=== PATIENT | male | born 1940 | race Caucasian/White ===

== ENCOUNTER 2018-01-09 09:29 | Inpatient (IN) | payer OTHER ==
[~2018-01-09] VITALS: Ht 177.8 cm; Wt 85.1 kg
--- NOTE | ~2018-01-09 | EKG ---
[place] [address] [facility] [place] [address] ELECTROCARDIOGRAM REPORT Name: VERONA GAUTAM Room #: 431-P ADM IN M.R.#: [id number] Admission: 01/09/18 Attend Phys: Jaquan Ziegler MD Discharge: Date of : 40 Report #: [id number] THIS REPORT FOR: //name// [facility] ED Test Date: 2018-01-09 Test Time: 10:07:42 Pat Name: VERONA GAUTAM Department: Room: [facility] Gender: M Side Guider: JACQUES : 1940 Requested By: Jesse Vinson Order Number: [id number] MD: Jhonny Marcus Measurements Intervals [place] Rate: 74 P: 32 [place]: 174 QRS: 64 QRSD: 121 T: 17 QT: 426 QTc: 473 Interpretive Statements Sinus rhythm Normal tracing No previous ECG available for comparison Electronically Signed On 01-10-2018 8:17:53 CDT by Jhonny Marcus [email or web address] <ELECTRONICALLY SIGNED> By: Jhonny Marcus MD, [facility] 01/10/18 0817 1007 1007 Jhonny Marcus MD, FACC /EPI
[2018-01-09 09:34] VITALS: BP 165/109
[2018-01-09] MEDS ORDERED: PROZAC20 MG PO (10:02)
[2018-01-09] MEDS ORDERED: OMEPRAZOLE40 MG PO (10:02)
[2018-01-09] MEDS ORDERED: LIBRAX PO (10:03)
[2018-01-09] MEDS ORDERED: FLOMAX0.4 MG PO (10:03)
[2018-01-09 10:04] LABS: ABSOLUTE NEUTROPHILS 12.6 thou/uL (1.4-8.2); BASOPHILS 0.1 % (0.0-2.0); EOSINOPHILS 0.1 % (0.0-3.0); HEMATOCRIT 41.6 % (42.0-52.0); HEMOGLOBIN 14.2 gm/dL (14.0-18.0); LYMPHOCYTES 4.6 % (24.0-44.0); MCH 31.4 pg (26.0-34.0); MCHC 34.3 g/dL (28.0-37.0); MCV 91.6 fL (80.0-100.0); MONOCYTES 7.2 % (1.0-8.0); PLATELET COUNT 197 thou/uL (150-400); RBC 4.54 mil/uL (4.50-6.00); RDW 13.4 % (10.5-14.5); WBC 14.4 thou/uL (4.0-11.0)
[2018-01-09 10:14] LABS: ANION GAP 7 mmol/L (7-16); BUN 17 mg/dL (7-18); CALCIUM 9.1 mg/dL (8.5-10.1); CHLORIDE 93 mmol/L (98-107); CO2 27 mmol/L (21-32); CREATININE 0.8 mg/dL (0.7-1.3); GLUCOSE 144 mg/dL (74-106); POTASSIUM 4.2 mmol/L (3.5-5.1); SODIUM 127 mmol/L (136-145)
[2018-01-09 10:22] LABS: ALBUMIN 3.8 g/dL (3.4-5.0); LIPASE 116 U/L (73-393); SGOT 19 U/L (15-37); SGPT 25 U/L (30-65); TOTAL BILIRUBIN 0.4 mg/dL (<0.1-1.0); TOTAL PROTEIN 7.4 g/dL (6.4-8.2); TROPONIN-I <0.06 ng/mL (<0.06)
[2018-01-09 11:02] LABS: URINE BILIRUBIN NEGATIVE (Negative); URINE BLOOD NEGATIVE (Negative); URINE CLARITY CLEAR; URINE COLOR YELLOW; URINE GLUCOSE-RANDOM* NEGATIVE (Negative); URINE KETONES TRACE (Negative); URINE LEUKOCYTES-REFLEX NEGATIVE (Negative); URINE NITRITE-REFLEX NEGATIVE (Negative); URINE PROTEIN (DIPSTICK) NEGATIVE (Negative); URINE UROBILINOGEN 0.2 E.U./dl (0.2-1.0)
[2018-01-09 14:27] VITALS: BP 165/109
[2018-01-09 15:23] VITALS: BP 146/73
[2018-01-09 15:30] VITALS: BP 138/72
[2018-01-09] MEDS ORDERED: VITAMINC500 PO (16:16)
[2018-01-09] MEDS ORDERED: FISH OIL 1,001000 M2 PO (16:16)
[2018-01-09] MEDS ORDERED: ZINC10 MG PO (16:17)
[2018-01-09] MEDS ORDERED: VITAMIN E400 UNIT PO (16:18)
[2018-01-09] MEDS ORDERED: MUCINEX1200 MG PO (16:19)
[2018-01-09] MEDS ORDERED: COQ-10100 MG PO (16:19)
[2018-01-09 20:00] VITALS: BP 128/78
[2018-01-10 04:33] VITALS: BP 131/64
[2018-01-10 09:06] LABS: HEMATOCRIT 37.7 % (42.0-52.0); HEMOGLOBIN 13.1 gm/dL (14.0-18.0); MCH 32.1 pg (26.0-34.0); MCHC 34.7 g/dL (28.0-37.0); MCV 92.5 fL (80.0-100.0); RBC 4.08 mil/uL (4.50-6.00); RDW 13.5 % (10.5-14.5); WBC 7.4 thou/uL (4.0-11.0)
[2018-01-10 09:25] VITALS: BP 135/83
[2018-01-10 09:27] LABS: CALCIUM 8.3 mg/dL (8.5-10.1); CREATININE 0.9 mg/dL (0.7-1.3); TOTAL BILIRUBIN 0.8 mg/dL (<0.1-1.0); TOTAL PROTEIN 6.5 g/dL (6.4-8.2)
[2018-01-11 06:13] VITALS: BP 150/88
[2018-01-11 07:25] VITALS: BP 137/83
[2018-01-11] MEDS ORDERED: CEFDINIR300 MG PO (08:09)
[2018-01-11 15:26] VITALS: BP 137/83
== END 2018-01-11 17:30 | disposition home or self-care (01) | DRG 177 ==
LOC: ER 09:29 → EROBS 13:58 → 4E 13:58 → SICU 01-10 09:00 → ENTRNSPT 01-11 17:08 → SICU 01-11 17:30
PROVIDERS: Family Medicine; Physician Assistant
PROC: 0DJ08ZZ Inspection of Upper Intestinal Tract, Via Natural or Artificial Opening Endoscopic (ICD-10-PCS; principal; 2018-01-11)
DX: J15.6 Pneumonia due to other Gram-negative bacteria (principal); E43 Unspecified severe protein-calorie malnutrition; E87.1 Hypo-osmolality and hyponatremia; N40.1 Benign prostatic hyperplasia with lower urinary tract symptoms; K81.9 Cholecystitis, unspecified; F41.9 Anxiety disorder, unspecified; K21.9 Gastro-esophageal reflux disease without esophagitis; F10.920 Alcohol use, unspecified with intoxication, uncomplicated; R33.8 Other retention of urine; K59.00 Constipation, unspecified; J98.01 Acute bronchospasm; Z68.26 Body mass index [BMI] 26.0-26.9, adult; Z87.891 Personal history of nicotine dependence; Z87.11 Personal history of peptic ulcer disease; Z79.899 Other long term (current) drug therapy; Z82.3 Family history of stroke; Z82.5 Family history of asthma and other chronic lower respiratory diseases
CPT/HCPCS: 10084; 15002; 62110; 62900; 70005

== ENCOUNTER → 2018-02-06 | Outpatient (CLI) | payer OTHER ==
[~2018-02-06] MED LIST: CEFDINIR300 MG PO; COQ-10100 MG PO; FISH OIL 1,001000 M2 PO; FLOMAX0.4 MG PO; LIBRAX PO; MUCINEX1200 MG PO; OMEPRAZOLE40 MG PO; PROZAC20 MG PO; VITAMIN E400 UNIT PO; VITAMINC500 PO; ZINC10 MG PO
== END ==
LOC: SPEECH 10:46 → RAD 10:46
DX: J98.11 Atelectasis (principal); K21.9 Gastro-esophageal reflux disease without esophagitis; J30.1 Allergic rhinitis due to pollen; K44.9 Diaphragmatic hernia without obstruction or gangrene; R10.13 Epigastric pain

== ENCOUNTER → 2018-03-24 | Outpatient (CLI) | payer OTHER ==
--- NOTE | ~2018-03-24 | SLE ---
[facility] [place] [address] POLYSOMNOGRAPHY STUDY Name: VERONA GAUTAM Room #: REG [facility].#: [id number] Admission: 03/24/18 Attend Phys: Navid Hamilton MD Discharge: Date of : 40 Report #: [id number] THIS REPORT FOR: //name// CC: Navid Hannah MD DATE OF SERVICE: 03/25/2018 ATTENDING PHYSICIAN: Dr. Angel Hannah. The patient is a 78-year-old who weighs 187 pounds and is 70 inches tall with a BMI of 26.8. The patient's Rodney score was 10. The patient underwent a diagnostic sleep study at [facility]. During the night study, the patient spent 393 minutes in bed and slept for 296 minutes with a sleep efficiency of 76%. Sleep latency was 36.2 minutes with a REM latency of 322.7 minutes. Overall sleep architecture showed increased stage 1 and stage 2 sleep, absent slow wave and significantly reduced REM sleep, which was only 0.8% of total sleep time. During the night of the study, the patient had 20 apneas, 18 obstructive, l central and 1 mixed, and 88 hypopneas. The patient's apnea-hypopnea index was 21.7 per hour with a REM index of 24 per hour and a supine index of 21.7 per hour as well. EKG monitoring revealed an average heart rate of 70 beats per minute, normal sinus rhythm. Occasional PACs and rare PVCs seen. PLMS were seen at an index of 87.8 per hour and 4.6 per hour caused EEG arousals. Nocturnal oximetry study revealed an average oxygen saturtion of 90% with a lowest of 68%. 81 minutes were spent with oxygen saturation of less than 89%. The patient did meet the criteria for CPAP initiation, but it was late in the night of the study, and as a result there was no sufficient time to initiate CPAP. IMPRESSION: 1. Moderate sleep apnea-hypopnea syndrome at an apnea-hypopnea index of 21.7 per hour. 2. Nocturnal hypoxia secondary to obstructive sleep apnea. 3. 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 [facility] [address] [place] [address] POLYSOMNOGRAPHY STUDY Name: VERONA GAUTAM Room #: REG [facility].#: [id number] Admission: 03/24/18 Attend Phys: Navid Hamilton MD Discharge: Date of : 40 Report #: [id number] RECOMMENDATIONS: 1. The patient would benefit from return to the sleep lab for CPAP titration study. 2. Once optimum CPAP pressure is achieved, then follow up in 4-6 weeks to assess compliance with CPAP and to document clinical improvement. 3. Weight loss is advised. 4. Avoid HAND INSERTER OPERATOR depressants. 5. Cautioned regarding driving until symptoms of sleep apnea have resolved with the use of CPAP. 6. The patient should also be further evaluated for symptoms of restless legs during the day and if present it can be treated with dopaminergic agonist agents. <ELECTRONICALLY SIGNED> By: Navid Hamilton MD 03/26/18 1720 1535 1552 Navid Hamilton MD /nt
== END ==
LOC: SLEEPLAB 16:06
DX: G47.33 Obstructive sleep apnea (adult) (pediatric) (principal); G47.61 Periodic limb movement disorder; G47.34 Idiopathic sleep related nonobstructive alveolar hypoventilation; R06.83 Snoring

== ENCOUNTER → 2018-04-18 | Outpatient (CLI) | payer OTHER ==
--- NOTE | ~2018-04-18 | SLE ---
[facility] [place] [address] POLYSOMNOGRAPHY STUDY Name: VERONA GAUTAM Room #: REG [facility].#: [id number] Admission: 04/18/18 Attend Phys: Navid Hamilton MD Discharge: Date of : 40 Report #: [id number] THIS REPORT FOR: //name// CC: Navid Hannah DATE OF SERVICE: 04/18/2018 ATTENDING PHYSICIAN: Dr. Angel Hannah. The patient is 78 years old who weighs 187 pounds and is 70 inches tall with a BMI of 26.8. The patient had a previous sleep study in March of this year and was found to have moderate obstructive sleep apnea at an AHI of 21.7 per hour. The patient returned to [facility] for CPAP titration study. During the night of study, the patient spent 502 minutes in bed and slept for 354 minutes with a sleep efficiency of 70.6%. Sleep latency was prolonged at 74 minutes with a REM latency of 245 minutes. Overall, sleep architecture showed increased stage I sleep, normal stage 2 sleep, absent slow wave and reduced REM sleep, which was 8% of the total sleep time. During the night of study, the patient's average heart rate was 74 beats per minute, occasional PVCs seen. Maximum heart rate was 92 beats per minute. No sustained arrhythmias were observed. PLMS were seen at an index of 52 per hour, but only 2.5 per hour caused EEG arousals. The patient was started on CPAP at a pressure of 5 cm water and titrated up to 16 cm water. The patient did have some difficult titration. He was having a large oral leaks as the pressure was increased. The avionics repair technician switched him to a large full face mask and later he was switched to a nasal mask with a chin strap. Review of the titration data reveals that the best pressure was 15 cm of water. At that pressure, the patient had 48 minutes of sleep. The patient's AHI was reduced to 3.7 per hour. The patient did have supine sleep, but no REM sleep was observed. Oxygen saturation remained above 92%. Prior to that, at a pressure of 14 cm of water, the patient did have supine and REM sleep and AHI was 5 per hour. The pressure of 15 was increased to eliminate snoring. IMPRESSION: 1. Sleep apnea diagnosed by previous sleep study. 2. Severe PLMS without any significant EEG arousals. This does not need to be treated unless the patient has symptoms of restless legs during the day. 3. Reduced sleep efficiency resulting from sleep onset and sleep maintenance [facility] [address] [place] [address] POLYSOMNOGRAPHY STUDY Name: VERONA GAUTAM Room #: REG [facility] Kylah#: [id number] Admission: 04/18/18 Attend Phys: Navid Hamilton MD Discharge: Date of : 40 Report #: [id number] insomnia. RECOMMENDATIONS: 1. CPAP at 15 cm water should be used on a nightly basis. 2. Follow up in 4-6 weeks to assess compliance with CPAP and to document clinical improvement. 3. Avoid FOUNDRY ENGINEER depressants. 4. Caution regarding driving until symptoms of sleep apnea have resolved with the use of CPAP. <ELECTRONICALLY SIGNED> By: Navid Hamilton MD 04/20/18 0642 1839 191 Navid Hamilton MD /nt
== END ==
LOC: SLEEPLAB 09:31
DX: G47.33 Obstructive sleep apnea (adult) (pediatric) (principal); G47.61 Periodic limb movement disorder

== ENCOUNTER 2019-05-14 19:51 | Emergency (ER) | payer OTHER ==
[~2019-05-14] VITALS: Ht 177.8 cm; Wt 85.7 kg
[2019-05-14] MEDS ORDERED: TESSALON PERLE100 M1 PO (19:59)
[2019-05-14 20:38] VITALS: BP 111/63
--- NOTE | 2019-05-15 08:40 | EKG ---
[address] [address] ELECTROCARDIOGRAM REPORT Name: VERONA GAUTAM [id number] Admission: 05/14/19 Attend Phys: Discharge: 05/14/19 Date of : 40 Report #: [id number] THIS REPORT FOR: //name// [facility] ED Test Date: 2019-05-14 Test Time: 20:18:33 Pat Name: VERONA GAUTAM Department: Room: Gender: M Patcher [place]: : 1940 Requested By: Jesse Vinson Order Number: [id number] MD: Hill Rodriguez Measurements Intervals [place] Rate: 82 P: 46 [place]: 179 QRS: 61 QRSD: 117 T: 32 QT: 396 QTc: 463 Interpretive Statements Sinus rhythm Probable left atrial enlargement Nonspecific intraventricular conduction delay Compared to ECG 01/09/2018 10:07:42 Intraventricular conduction delay now present Electronically Signed On 05-15-2019 8:40:11 AIRPLANE PILOT PHOTOGRAMMETRY by Hill Rodriguez [email or web address] <ELECTRONICALLY SIGNED> By: Hill Rodriguez MD 05/15/19 0840 17 17 Hill Rodriguez MD /JAMIL
== END 2019-05-14 20:31 | disposition left against medical advice (07) ==
LOC: ER 19:51
DX: R55 Syncope and collapse (principal); S09.90XA Unspecified injury of head, initial encounter; Z87.891 Personal history of nicotine dependence; Z79.899 Other long term (current) drug therapy; W07.XXXA Fall from chair, initial encounter; Y93.89 Activity, other specified; Y92.511 Restaurant or cafe as the place of occurrence of the external cause; Y99.9 Unspecified external cause status

== ENCOUNTER 2019-06-06 05:16 | Inpatient (IN) | payer OTHER ==
[~2019-06-06] VITALS: Ht 177.8 cm; Wt 87.1 kg
[~2019-06-06 05:16] MED LIST changes: +TESSALON PERLE100 M1 PO
[2019-06-06 05:19] VITALS: BP 148/84
[2019-06-06 06:02] LABS: ABSOLUTE NEUTROPHILS 6.2 thou/uL (1.4-8.2); BASOPHILS 0.2 % (0.0-2.0); EOSINOPHILS 0.5 % (0.0-3.0); HEMATOCRIT 39.1 % (42.0-52.0); HEMOGLOBIN 13.1 gm/dL (14.0-18.0); LYMPHOCYTES 7.8 % (24.0-44.0); MCHC 33.5 g/dL (28.0-37.0); MCV 95.7 fL (80.0-100.0); PLATELET COUNT 179 thou/uL (150-400); POLYS 84.5 % (36.0-66.0); RBC 4.09 mil/uL (4.50-6.00); RDW 13.3 % (10.5-14.5); WBC 7.4 thou/uL (4.0-11.0)
[2019-06-06 06:03] LABS: CALCIUM 9.1 mg/dL (8.5-10.1); CREATININE 0.8 mg/dL (0.7-1.3); POTASSIUM 3.8 mmol/L (3.5-5.1)
[2019-06-06 06:10] LABS: ALBUMIN 3.4 g/dL (3.4-5.0); TOTAL BILIRUBIN 2.7 mg/dL (<0.1-1.0); TOTAL PROTEIN 7.2 g/dL (6.4-8.2)
[2019-06-06 07:24] LABS: URINE BILIRUBIN NEGATIVE (Negative); URINE BLOOD NEGATIVE (Negative); URINE CLARITY CLEAR; URINE COLOR YELLOW; URINE GLUCOSE-RANDOM* NEGATIVE (Negative); URINE KETONES NEGATIVE (Negative); URINE LEUKOCYTES-REFLEX NEGATIVE (Negative); URINE NITRITE-REFLEX NEGATIVE (Negative); URINE PROTEIN (DIPSTICK) NEGATIVE (Negative); URINE SPECIFIC GRAVITY <= 1.005 (1.005-1.035)
[2019-06-06 07:44] VITALS: BP 139/78
[2019-06-06 08:39] VITALS: BP 139/78
[2019-06-06 08:56] VITALS: BP 147/76
[2019-06-06 15:42] VITALS: BP 124/75
--- NOTE | 2019-06-06 18:16 | NUR ---
Patient admitted to this unit at 0900 for Abdominal Pain. Vital signs have been stable but O2 sats have ranged from 89-91% on room air. Patient placed on 02 at [address] Chaves notified of this when he called to order another CMP. Patient has continually asked for pain medication even after he has been told that "it is too early." Dr Ziegler gave telephone order for Morphine 4mg IV Push q 2 hours for pain. Patient has been educated about the risks of too many pain medications. He verbalized an understanding of this education. Patient has had jello, applesauce, water and broth today. He has had nausea and no vomiting. Nausea has been controlled with IV Zofran. Will report to oncoming nurse.
[2019-06-06 21:00] VITALS: BP 141/74
[2019-06-07 00:25] VITALS: BP 116/69
--- NOTE | 2019-06-07 03:05 | NUR ---
Patient making slow progress towards outcome goals. Low grade temp. Improved with antibiotics. Abdominal pain much improved after keeping patient NPO. Fentanyl controlled pain better. Good urine output. Low fall risks, calls out appropriately for needs. Gait steady.
[2019-06-07 05:22] LABS: HEMOGLOBIN 12.2 gm/dL (14.0-18.0); MCHC 33.8 g/dL (28.0-37.0); MCV 97.6 fL (80.0-100.0); RBC 3.69 mil/uL (4.50-6.00); RDW 13.5 % (10.5-14.5); WBC 7.9 thou/uL (4.0-11.0)
[2019-06-07 05:41] LABS: ALBUMIN 2.6 g/dL (3.4-5.0); CREATININE 0.8 mg/dL (0.7-1.3); POTASSIUM 4.2 mmol/L (3.5-5.1); TOTAL BILIRUBIN 4.9 mg/dL (<0.1-1.0); TOTAL PROTEIN 6.2 g/dL (6.4-8.2)
[2019-06-07 05:53] VITALS: BP 118/69
[2019-06-07 07:17] VITALS: BP 116/69
--- NOTE | 2019-06-07 07:47 | NUR ---
chart review, pt out of room for test/procedure.
[2019-06-07 12:09] LABS: HAV IgM AB (ANTI-HAV IgM) Negative (Negative); HEPATITIS B SURFACE AG Negative (Negative); HEPATITIS C VIRUS AB <0.1 (0.0-0.9)
[2019-06-07 15:00] VITALS: BP 130/71
--- NOTE | 2019-06-07 18:27 | NUR ---
ASSUMED CARE OF PT AT 0700. PT AOX4 IN NO ACUTE DISTRESS. REPORTS PAIN MUCH IMPROVED. MRCP NEGATIVE. NOW ON FULL LIQUIDS. NPO AFTER MN FOR PIPIDA SCAN AND POSSIBLE LAP PELON. VITALS STABLE. MAINTENANCE FLUIDS AND IV ABX INFUSING PER ORDER. CALLS APPROPRIATELY. PT PROGRESSING TOWARD POC GOALS.
[2019-06-07 19:11] VITALS: BP 136/83
--- NOTE | 2019-06-07 20:00 | NUR ---
PT TRANSFERED TO [facility] AT 1944. REPORT CALLED
--- NOTE | 2019-06-08 05:05 | NUR ---
Pt. rested quietly at intervals during the night when checked on during frequent rounds. He offers no c/o pain or discomfort.
[2019-06-08 05:19] LABS: HEMATOCRIT 35.7 % (42.0-52.0); HEMOGLOBIN 11.6 gm/dL (14.0-18.0); MCH 31.4 pg (26.0-34.0); MCHC 32.3 g/dL (28.0-37.0); MCV 97.3 fL (80.0-100.0); RBC 3.67 mil/uL (4.50-6.00); RDW 13.6 % (10.5-14.5); WBC 5.8 thou/uL (4.0-11.0)
[2019-06-08 05:44] LABS: ALBUMIN 2.6 g/dL (3.4-5.0); CALCIUM 8.5 mg/dL (8.5-10.1); CREATININE 0.6 mg/dL (0.7-1.3); POTASSIUM 3.7 mmol/L (3.5-5.1); TOTAL PROTEIN 6.2 g/dL (6.4-8.2)
[2019-06-08 07:54] VITALS: BP 150/83
--- NOTE | 2019-06-08 12:00 | NUR ---
PT A&OX4, VSS, DENIES PAIN. PATIENT ABDOMEN ROUND AND SOFT, BM TODAY. BOWEL SOUNDS ACTIVE X4. HEPATOBILIARY PIPIDA COMPLETED. NO SIGNS OF DISTRESS. PATIENT REMAINS NPO. WILL CONTINUE TO MONITOR.
--- NOTE | 2019-06-08 15:56 | NUR ---
PT HAS BEEN OUT OF ROOM DURING MULTIPAL ATTEMPTS TO ASSESS THIS DAY. PT OUT OF ROOM AT TIME OF VISIT. CM TO FOLLOW INIDCATED WITH DC PLANNING.
--- NOTE | 2019-06-08 16:07 | NUR ---
PT IS IN SURGERY HAVING LAP PELON. CM CALLED PT'S SPOUSE AND SHE INDICATED THAT THEY LIVE TOGETHER IN A HOUSE AND THAT SHE IS INDEPENDENT AND ABLE TO ASSIST IF NEEDED. SPOUSE INTICATED THAT PT IS INDEPENDENT OF ADLS AND AMBULATION. PT AND SPOUSE BOTH DRIVE. VOICES NO CONCERNS RELATED TO DC AND DENY ANY NEEDS AT THIS TIME. FOLLOWING TO ASSIST WITH DC PLANNING.
[2019-06-08 19:57] VITALS: BP 150/84
[2019-06-08 20:53] VITALS: BP 149/85
[2019-06-08 21:45] VITALS: BP 141/81
[2019-06-08 22:53] VITALS: BP 132/79
[2019-06-09] VITALS: BP 136/76
--- NOTE | 2019-06-09 03:58 | NUR ---
ASSUMED CARE OF PT FROM PACU AT 1930HRS. PT IS AOX4 AND LETS NEEDS BE KNOWN. PT UP AD LALIT WITH A STEADY GAIT. O2 AT 2L CONTINUED. LAP SITES X4 ARE C/D/I. PAOLA DRAIN IN PLACE AND PATIENT. PT REPORTED SOME PAIN AND WAS GIVEN PRN PAIN MEDS. PT DENIES NAUSEA. PT WAS ABLE TO TOLERATE PO MEDS WITH SIPS OF WATER. ABX TREATMENT CONTINUED. PT WAS ABLE TO GET COMFORTABLE AND SLEEP PAERT OF THE SHIFT. VSS AND NO S/S OF ACUTE DISTRESS. WILL CONTINUE TO MONITOR.
[2019-06-09 04:11] VITALS: BP 136/74
[2019-06-09 05:42] LABS: HEMATOCRIT 34.1 % (42.0-52.0); HEMOGLOBIN 11.3 gm/dL (14.0-18.0); MCH 32.5 pg (26.0-34.0); MCHC 33.2 g/dL (28.0-37.0); MCV 97.8 fL (80.0-100.0); RBC 3.49 mil/uL (4.50-6.00); RDW 13.1 % (10.5-14.5); WBC 6.7 thou/uL (4.0-11.0)
[2019-06-09 06:08] LABS: ALBUMIN 2.5 g/dL (3.4-5.0); CALCIUM 8.2 mg/dL (8.5-10.1); CREATININE 0.6 mg/dL (0.7-1.3); TOTAL BILIRUBIN 0.6 mg/dL (<0.1-1.0)
[2019-06-09 08:00] VITALS: BP 140/72
--- NOTE | 2019-06-09 10:44 | NUR ---
PT A&OX4, VSS, PAIN IN ABDOMEN. 4 LAP SITES, C/D/I, WITH DERMABOND. PATIENT HAS URINATED, BOWEL SOUDS ACTIVE. PATIENT AMBULATES TO BATHROOM. FLUIDS AND ANTIBIOTICS RAN PER ORDER, IV PATENT.
[2019-06-09 15:00] VITALS: BP 133/70
[2019-06-09 19:50] VITALS: BP 134/78
[2019-06-10 03:32] LABS: HEMATOCRIT 33.5 % (42.0-52.0); HEMOGLOBIN 11.2 gm/dL (14.0-18.0); MCH 32.5 pg (26.0-34.0); MCHC 33.5 g/dL (28.0-37.0); MCV 96.9 fL (80.0-100.0); RBC 3.46 mil/uL (4.50-6.00); RDW 12.9 % (10.5-14.5); WBC 4.9 thou/uL (4.0-11.0)
[2019-06-10 04:06] LABS: ALBUMIN 2.5 g/dL (3.4-5.0); CALCIUM 8.3 mg/dL (8.5-10.1); CREATININE 0.7 mg/dL (0.7-1.3); POTASSIUM 3.8 mmol/L (3.5-5.1); TOTAL BILIRUBIN 0.8 mg/dL (<0.1-1.0); TOTAL PROTEIN 5.9 g/dL (6.4-8.2)
--- NOTE | 2019-06-10 05:36 | NUR ---
PROGRESS PT A/O X 4, UP AD LALIT AMBULATING IN ROOM VOIDING QS AND PASSING A SMALL AMOUNT OF FLATUS. MIDLINE ABDOMINAL INCISION WELL APPROXIMATED WITH INTACT SURGICAL GLUE IN PLACE NO DRAINAGE OR S/S OF INFECTION NOTED. TAKING HYDROCODONE FOR PAIN WITH EFFECT PT SLEPT MOST OF SHIFT. IVF'S AND ANTIBIOTICS INFUSING ORDERED CONTINUED POC.
[2019-06-10 06:08] VITALS: BP 150/81
[2019-06-10 09:11] VITALS: BP 133/74
[2019-06-10] MEDS ORDERED: LORCET 5-325 M1 EACH PO (09:14)
[2019-06-10] MEDS ORDERED: AUGMENTIN 875-1 EACH PO (09:14)
[2019-06-10 15:00] VITALS: BP 149/81
--- NOTE | 2019-06-10 17:49 | NUR ---
Assumed patient care at 0715. Patient's vital signs have been stable. He continues on on Sodium Chloride 0.9% at 75mLs per hour through right upper forearm IV. He continues to tolerate his IV Antibiotics well. Patient reported that he had a large bowel movement today. Incision sites from Lap Cande are covered with dressing that is clean, dry and intact. PAOLA Drain had 40cc of serosanginious fluid emptied during this shift. Patient has been placed on a Regular Diet and has been tolerating this well. Urinary output has been good; he has been using urinal. Patient has a pending Discharge order. Plan is to Discharge tomorrow if patient continues to do well. Hydrocodone 5/325mg given po at 0600 and 1330 for "level three" abdominal pain. Medications have been effective for pain control. Will continue to monitor.
[2019-06-10 19:14] VITALS: BP 150/85
[2019-06-11 04:47] LABS: ALBUMIN 2.6 g/dL (3.4-5.0); CALCIUM 8.7 mg/dL (8.5-10.1); CREATININE 0.7 mg/dL (0.7-1.3); POTASSIUM 3.4 mmol/L (3.5-5.1); TOTAL BILIRUBIN 0.6 mg/dL (<0.1-1.0); TOTAL PROTEIN 5.5 g/dL (6.4-8.2)
--- NOTE | 2019-06-11 07:47 | NUR ---
progress pt pain controlled with tylenol and hydrocodone when needed. up ad ml voiding qs, lap sites intact no drainage. marybeth lost suction notified this am after rounded returned call stated change drsiza twice a day on discharge and to be sure that he gets rx's for antibiotics and pain medication on discharge.
[2019-06-11 08:11] VITALS: BP 150/85
[2019-06-11 08:29] VITALS: BP 152/97
--- NOTE | 2019-06-11 11:47 | NUR ---
Assumed care at 0715. Patient's vital signs have been stable. PAOLA Drain had 40cc serosanginious output. Patient denied the need for pain medications as he wanted to wait until after returning home today. Discharge orders received this am. Patient and present for Discharge Instructions. They verbalized an understanding to all instructions then patient signed paperwork. Patient educated to notify doctor if there is excessive drainage at PAOLA Drain site; he verbalized an understanding to this. Patient left with , all belongings, Discharge Paperwork and prescriptions at 1040.
--- NOTE | 2019-06-14 15:07 | PATH ---
[facility] [address] [address] PATHOLOGY RPT PROCEDURE Name: PHUC GAUTAM Room #: 455-P [facility] IN M.R.#: [id number] Admission: 06/06/19 Date of : 40 Discharge: 06/11/19 Report #: [id number] Path Case #: [id number] [facility] Accession Number: [id number] . 01 Material submitted: . gallbladder - GALLBLADDER . 01 Clinical history: . Acute cholecystitis . 02 Diagnosis: Gallbladder, cholecystectomy: - Acute and chronic cholecystitis. - No gallstones present. (EVELYN/sherice; 06/12/2019) LBQ 06/14/2019 1129 Local . 02 Electronically signed: . Benedicto Jacob MD, Pathologist NPI- [id number] . 01 Gross description: . The specimen is received in formalin labeled "Patria, Phuc, gallbladder" and consists of a previously opened mccord-eli gallbladder measuring 3.2 x 2.0 x 1.5 cm. No margin is able to be identified. No calculus is present within the lumen or the container. The mucosa is hemorrhagic brown-purple with an average wall thickness of 0.1 cm. No masses are identified. The gallbladder is entirely submitted in A1-A3. (SDY; 06/11/2019) SYU/SYU 06/11/2019 1436 Local . 02 Pathologist provided ICD-10: K81.2 . 02 CPT . 402841 Specimen Comment: A courtesy copy of this report has been sent to [phone] Specimen Comment: Report sent to Performed at: [address], [place], [place] [id number] MD Taurus Alva MD Phone: [phone] Performed at: [address], [place] [id number] MD Janine Sauceda MD Phone: [phone]
== END 2019-06-11 11:02 | disposition home or self-care (01) | DRG 418 ==
LOC: ER 05:16 → 3W 08:03 → EROBS 08:03 → 4W 08:03 → 3W 08:45 → 4W 06-07 20:45
PROVIDERS: Emergency Medicine; Internal Medicine Gastroenterology; Surgery; ADMIT Family Medicine
PROC: 0FT44ZZ Resection of Gallbladder, Percutaneous Endoscopic Approach (ICD-10-PCS; principal; 2019-06-08)
PROC: BF121ZZ Fluoroscopy of Gallbladder using Low Osmolar Contrast (ICD-10-PCS; principal; 2019-06-08)
DX: K81.0 Acute cholecystitis (principal); E87.1 Hypo-osmolality and hyponatremia; F41.9 Anxiety disorder, unspecified; E80.6 Other disorders of bilirubin metabolism; K21.9 Gastro-esophageal reflux disease without esophagitis; R74.0 Nonspecific elevation of levels of transaminase and lactic acid dehydrogenase [LDH]; K81.1 Chronic cholecystitis; Z87.891 Personal history of nicotine dependence; Z83.6 Family history of other diseases of the respiratory system; Z82.3 Family history of stroke
CPT/HCPCS: 10047; 10080; 50010; 50101; 50249; 50331; 50411; 50555; 50558; 50739; 50740; 51297; 51489; 51687; 52265; 52266; 53307; 53310; 53312; 54022; 54118; 55245; 55317; 56462; 56525; 56526; 56638; 56674; 62110; 62900; 70005

== ENCOUNTER → 2019-06-19 | Outpatient (CLI) | payer OTHER ==
[~2019-06-19] MED LIST changes: +AUGMENTIN 875-1 EACH PO; +LORCET 5-325 M1 EACH PO
== END ==
LOC: NUC 09:05
DX: K81.9 Cholecystitis, unspecified (principal); Z90.49 Acquired absence of other specified parts of digestive tract

== ENCOUNTER → 2019-12-04 | Outpatient (CLI) | payer OTHER | LOC: LAB 13:41 | PROVIDERS: ATTEND Family Medicine | DX: Z03.818 Encounter for observation for suspected exposure to other biological agents ruled out (principal) ==

== ENCOUNTER 2020-02-26 22:15 | Emergency (ER) | payer OTHER ==
[~2020-02-26] VITALS: Ht 175.3 cm; Wt 84.8 kg
[2020-02-26] MEDS ORDERED: IPRATROPIUM BRO15 ML NASAL (22:30)
[2020-02-27 02:00] VITALS: BP 133/82
== END 2020-02-27 02:00 | disposition home or self-care (01) ==
LOC: ER 22:15
DX: S01.01XA Laceration without foreign body of scalp, initial encounter (principal); Z79.899 Other long term (current) drug therapy; Z88.8 Allergy status to other drugs, medicaments and biological substances; W07.XXXA Fall from chair, initial encounter; Y93.89 Activity, other specified; Y92.89 Other specified places as the place of occurrence of the external cause; Y99.8 Other external cause status